=== PATIENT | male | born 1985 | race Hispanic/Latino ===

== ENCOUNTER 2019-04-06 16:50 | Emergency (ER) | payer OTHER ==
[2019-04-06 17:00] VITALS: BP 108/53; PULSE 66; RESP 18; TEMP 98; O2SAT 98
[2019-04-06 17:03] VITALS: BMI 27.3
--- NOTE | 2019-04-06 17:30 | ED PDOC ---
Arrival/HPI - General Historian: Patient, Spouse - History of Present Illness Narrative History of Present Illness (Text): 04/06/19 17:25 CC: seizure HPI: 33 yo male w/ PMH of thyroid cancer with surgical resection and BEGUM comes to ED for evaluation of new onset seizure. Patient states he was at park playing soccer when he hit the ball awkwardly placing all of his weight on his right hip. At that moment, he felt something wrong with his hip due to the pain he was experiencing. Patient then started to feel nauseous and began feeling lightheaded. After that patient collapsed to the floor which was witnessed by spouse. Spouse states after event patient was lethargic, confused, sweating, and pale. Since then patient states all of his symptoms have abated and only needs to have a bowel movement. Denies prior episodes and family history. Denies fevers, chills, chest pain, sob, n/v, constipation or diarrhea, and dysuria. Time/Duration: 1-3 hours Symptom Onset: Sudden Symptom Course: Improving, Resolved Activities at Onset: Light Context: Exertion <Pina Walker - Last Filed: 04/06/19 18:39> <Krystian Lizarraga - Last Filed: 04/06/19 20:37> - General Chief Complaint: Seizure Time Seen by Provider: 04/06/19 17:00 Past Medical History - Provider Review Nursing Documentation Reviewed: Yes Primary Care Provider: Giovani Bryson P - Cardiac Hx Cardiac Disorders: No - Pulmonary Hx Respiratory Disorders: No - Neurological Hx Neurological Disorder: No - HEENT Hx HEENT Disorder: No - Renal Hx Renal Disorder: No - Endocrine/Metabolic Hx Endocrine Disorders: Yes Other/Comment: Thyroid cancer with thyroidectomy - Integumentary Hx Dermatological Disorder: No - Musculoskeletal/Rheumatological Hx Musculoskeletal Disorders: No - Gastrointestinal Hx Gastrointestinal Disorders: No - Genitourinary/Gynecological Hx Genitourinary Disorders: No - Psychiatric Hx Psychophysiologic Disorder: No Hx Substance Use: No - Surgical History Hx Thyroidectomy: Yes <Pina Walker - Last Filed: 04/06/19 18:39> Family/Social History - Physician Review Nursing Documentation Reviewed: Yes Family/Social History: No Known Family HX Smoking Status: Never Smoked Hx Alcohol Use: Yes Frequency of alcohol use: Socially Hx Substance Use: No <Pina Walker - Last Filed: 04/06/19 18:39> Allergies/Home Meds <Pina Walker - Last Filed: 04/06/19 18:39> <ZiaKrystian - Last Filed: 04/06/19 20:37> Allergies/Adverse Reactions: Allergies No Known Allergies Allergy (Verified 04/06/19 17:00) Home Medications: Home Meds Medication Instructions Recorded Confirmed No Known Home Med 04/06/19 04/06/19 Review of Systems - Review of Systems Constitutional: Normal. absent: Fatigue, Weight Change, Fevers Eyes: Normal. absent: Vision Changes, Photophobia ENT: Normal. absent: Hearing Changes, Tinnitus, TMJ Pain Respiratory: Normal. absent: SOB, Cough, Sputum Cardiovascular: Normal. absent: Chest Pain, Palpitations, Edema Gastrointestinal: Normal. absent: Abdominal Pain, Stool Changes, Constipation, Diarrhea Genitourinary Male: Normal. absent: Dysuria, Frequency, Hematuria Musculoskeletal: Normal. absent: Arthralgias, Back Pain, Neck Pain, Joint Swelling Skin: Normal. absent: Rash, Pruritis, Skin Lesions Neurological: Normal. absent: Headache, Dizziness, Focal Weakness Endocrine: Normal. absent: Diaphoresis, Polyuria Psychiatric: Normal. absent: Anxiety, Depression <Aaron,Madaser - Last Filed: 04/06/19 18:39> Physical Exam Vital Signs Reviewed: Yes Vital Signs Temp Pulse Resp BP Pulse Ox 04/06/19 17:03 98.0 F 66 108/53 L 98 04/06/19 16:51 98.0 F 66 18 108/53 L 98 Temperature: Afebrile Blood Pressure: Hypotensive Pulse: Regular Respiratory Rate: Normal Appearance: Positive for: Well-Appearing, Non-Toxic, Comfortable Pain Distress: Mild Mental Status: Positive for: Alert and Oriented X 3 Finger Stick Blood Glucose: 174 - Systems Exam Head: Present: Atraumatic, Normocephalic Pupils: Present: PERRL Extroacular Muscles: Present: EOMI Conjunctiva: Present: Normal Mouth: Present: Moist Mucous Membranes Neck: Present: Normal Range of Motion. No: JVD Respiratory/Chest: Present: Clear to Auscultation, Good Air Exchange. No: Respiratory Distress, Accessory Muscle Use Cardiovascular: Present: Regular Rate and Rhythm, Normal S1, S2. No: Murmurs, Tachycardic Abdomen: Present: Normal Bowel Sounds. No: Tenderness, Distention Upper Extremity: Present: Normal Inspection. No: Cyanosis, Edema Lower Extremity: Present: Normal Inspection. No: Edema Neurological: Present: GCS=15, CN II-XII Intact, Speech Normal Skin: Present: Warm, Dry, Normal Color. No: Rashes Psychiatric: Present: Alert, Oriented x 3, Normal Insight, Normal Concentration <AaronPina duron - Last Filed: 04/06/19 18:39> Vital Signs Temp Pulse Resp BP Pulse Ox 04/06/19 17:03 98.0 F 66 108/53 L 98 04/06/19 16:51 98.0 F 66 18 108/53 L 98 <Krystian Lizarraga - Last Filed: 04/06/19 20:37> Medical Decision Making ED Course and Treatment: 04/06/19 17:33 Impression 33 yo male w/ PMH of thyroid cancer with surgical resection and BEGUM comes to ED for evaluation of new onset seizure. Plan -CBC -CMP -CT head -EKG -Hip XRay -UDS -U/A and urine cx -Alcohol level Prior Visits No prior visit Progress Notes Patient hesitant to be admitted to hospital Will attempt to call PMD for neurologist preference Considering anti-seizure meds for discharge pending conversation with pmd and neurology 04/06/19 18:39 CT head resulted with no acute intracranial pathology Call was placed to pmd. pending callback from Dr. Bryson 04/06/19 19:[address] Bryson recommended Dr. Villalta for neurology consult. Call was placed to Dr. Villalta who recommended EEG and MRI with no AEDs to be given at this time Patient was instructed to call Dr. Bryson to get outpatient EEG and MRI done and to followup with Dr. Villalta within a weeks of time Re-evaluation Time: 19:09 Reassessment Condition: Re-examined, Improved - Lab Interpretations Lab Results: 04/06/19 17:17 04/06/19 17:17 Lab Results 04/06/19 17:17: Alcohol, Quantitative < 10 04/06/19 17:17: Sodium 143, Potassium 4.1, Chloride 108 H, Carbon Dioxide 24, Anion Gap 14, BUN 16, Creatinine 1.0, Est GFR ( Amer) > 60, Est GFR (Non- Af Amer) > 60, Random Glucose 178 H, Calcium 9.4, Total Bilirubin 0.6, AST 26, ALT 27, Alkaline Phosphatase 65, Total Protein 7.6, Albumin 4.5, Globulin 3.1, Albumin/Globulin Ratio 1.4 04/06/19 17:17: WBC 9.0, RBC 4.63, Hgb 13.8 L, Hct 40.6 L, MCV 87.7, MCH 29.8, MCHC 34.0, RDW 12.7, Plt Count 303, MPV 10.1, Neut % (Auto) 59.5, Lymph % (Auto) 33.5, [place] % (Auto) 5.1, Eos % (Auto) 1.7, Baso % (Auto) 0.2, Lymph # (Auto) 3.0, [place] # (Auto) 0.5, Eos # (Auto) 0.2, Baso # (Auto) 0.02, Absolute Neuts (auto) 5.34 I have reviewed the lab results: Yes Interpretation: No sign. chg./baseline - RAD Interpretation Radiology Orders: 04/06/19 17:10 HEAD W/O CONTRAST [CT] Stat Field Service Specialist: Radiologist <Pina Walker - Last Filed: 04/06/19 18:39> - Lab Interpretations Lab Results: Total Bilirubin 0.6 mg/dL (0.2-1.3) 04/06/19 17:17 AST 26 U/L (17-59) 04/06/19 17:17 ALT 27 U/L (7-56) 04/06/19 17:17 Alkaline Phosphatase 65 U/L (38-126) 04/06/19 17:17 Total Protein 7.6 g/dL (5.8-8.3) 04/06/19 17:17 Albumin 4.5 g/dL (3.0-4.8) 04/06/19 17:17 Globulin 3.1 gm/dL 04/06/19 17:17 Albumin/Globulin Ratio 1.4 (1.1-1.8) 04/06/19 17:17 - RAD Interpretation Radiology Orders: 04/06/19 17:10 HEAD W/O CONTRAST [CT] Stat 04/06/19 17:28 Hip Right [HIP MIN 2V W/ PELVIS RT] [RAD] Stat <Krystian Lizarraga - Last Filed: 04/06/19 20:37> Disposition/Present on Arrival - Present on Arrival Any Indicators Present on Arrival: No History of DVT/PE: No History of Uncontrolled Diabetes: No Urinary Catheter: No History of Decub. Ulcer: No History Surgical Site Infection Following: None - Disposition Have Diagnosis and Disposition been Completed?: Yes <Pina Walker - Last Filed: 04/06/19 18:39> - Disposition Disposition Time: 18:30 <Krystian Lizarraga - Last Filed: 04/06/19 20:37> - Disposition Diagnosis: Seizure, Contusion, hip Disposition: HOME/ ROUTINE Condition: GOOD Discharge Instructions (ExitCare): Seizures, Adult (DC), Hip Pointer (DC) Additional Instructions: MATHEW GARCIA, thank you for letting us take care of you today. The emergency medical care you received today was directed at your acute symptoms. If you were prescribed any medication, please fill it and take as directed. It may take several days for your symptoms to resolve. Return to the Emergency Department if your symptoms worsen, do not improve, or if you have any other problems. Please contact your doctor or call one of the physicians/clinics you have been referred to that are listed on the Patient Visit Information form that is included in your discharge packet. Bring any paperwork you were given at discharge with you along with any medications you are taking to your follow up visit. Our treatment cannot replace ongoing medical care by a primary care provider outside of the emergency department. Thank you for allowing the [facility] team to be part of your care today. Follow up with Dr. Bryson tomorrow. He will arrange the MRI and EEG. Call Dr. Villalta (neurology) in 1-2 days for further management and evaluation. Referrals: Giovani Bryson MD [Primary Care Provider] - Follow up with primary Ton Villalta MD [Staff Provider] - Follow up with primary Forms: [employer] ([place])
[2019-04-06 17:31] LABS: BASO # 0.02 K/mm3 (0.0-2.0); BASO % 0.2 % (0.0-3.0); EOS # 0.2 (0.0-0.7); EOS % 1.7 % (1.5-5.0); HEMOGLOBIN 13.8 g/dL (14.0-18.0); LYMPH % 33.5 % (22.0-35.0); MEAN CELL VOLUME 87.7 fl (80.0-105.0); MEAN CORPUSCULAR HEMOGLOBIN 29.8 pg (25.0-35.0); MEAN PLATELET VOLUME 10.1 fl (7.0-11.0); MONO # 0.5 (0.1-0.6); MONO % 5.1 % (1.0-6.0); RBC 4.63 10^6/uL (3.5-6.1); RED CELL DISTRIBUTION WIDTH 12.7 % (11.5-14.5)
[2019-04-06 17:43] LABS: ALB/GLOB RATIO 1.4 (1.1-1.8); ALBUMIN 4.5 g/dL (3.0-4.8); ALT/SGPT 27 U/L (7-56); AST/SGOT 26 U/L (17-59); BLOOD UREA NITROGEN 16 mg/dL (7-21); CALCIUM 9.4 mg/dL (8.4-10.5); GFR NON-AFRICAN AMERICAN > 60
[2019-04-06 19:22] LABS: BARBITURATES, UR NEGATIVE (NEGATIVE); BENZODIAZEPINES, UR NEGATIVE (NEGATIVE); OPIATES, UR NEGATIVE (NEGATIVE); PHENCYCLIDINE, UR NEGATIVE (NEGATIVE)
[2019-04-06 19:44] LABS: T3 1.06 ng/mL (0.97-1.69)
--- NOTE | 2019-04-07 07:58 | RAD ---
Date of service: 04/06/2019 PROCEDURE: RIGHT HIP WITH PELVIS RADIOGRAPHS HISTORY: s/p fall - r/o fx COMPARISON: None available. TECHNIQUE: Three views. FINDINGS: No acute fracture dislocation is identified involving the right hip joint. A small bone island is identified at the distal neck inferiorly. Pelvic ring appears intact including pubic symphysis. Remaining pubic bony anatomy is intact as well with sacrum and bilateral iliac bones unremarkable appearing. Sacroiliac joints appear intact with unremarkable appearing left hip joint in the AP projection. Pelvic soft tissues appear unremarkable diffusely. IMPRESSION: No acute fracture or dislocation right hip joint with small bone island identified at the inferior margins of the distal right femoral neck. No suspicious bony pelvic findings.
--- NOTE | 2019-04-07 08:04 | CT ---
Date of service: 04/06/2019 PROCEDURE: CT HEAD WITHOUT CONTRAST. HISTORY: new onset seizure COMPARISON: None available. TECHNIQUE: Axial computed tomography images were obtained through the head/brain without intravenous contrast. Radiation dose: Total exam DLP = 979.57 mGy-cm. This CT exam was performed using one or more of the following dose reduction techniques: Automated exposure control, adjustment of the mA and/or kV according to patient size, and/or use of iterative reconstruction technique. FINDINGS: HEMORRHAGE: No acute parenchymal, subarachnoid or extra-axial hemorrhage. BRAIN: No mass effect or edema. No atrophy or chronic microvascular ischemic changes. VENTRICLES: No obstructive hydrocephalus. CALVARIUM: Calvarium intact PARANASAL SINUSES: Unremarkable as visualized. No significant inflammatory changes. MASTOID AIR CELLS: Unremarkable as visualized. No inflammatory changes. OTHER FINDINGS: None. IMPRESSION: No acute intracranial hemorrhage.
--- NOTE | 2019-04-07 10:59 | CARD ---
APPROVED REPORT Date of service: 04/06/2019 EKG Measurement Heart [id number] MA [id number] <Conclusion> Normal sinus rhythm Normal ECG
== END 2019-04-06 20:16 | disposition home or self-care (01) ==
LOC: ED 16:50 → MERGE 16:50 → ED 20:16
DX: S70.00XA Contusion of unspecified hip, initial encounter (principal); X50.0XXA Overexertion from strenuous movement or load, initial encounter; Y93.66 Activity, soccer; Y92.830 Public park as the place of occurrence of the external cause; R56.9 Unspecified convulsions; Z85.850 Personal history of malignant neoplasm of thyroid